=== PATIENT | female | born 1990 | race African-American/Black ===

== ENCOUNTER 2023-02-01 19:02 | Emergency (ER) | payer OTHER ==
[~2023-02-01] VITALS: Ht 149.9 cm; Wt 62.0 kg
[2023-02-01 19:29] VITALS: TEMP 97.5; O2SAT 99
[2023-02-01] MEDS ORDERED: MOTRIN (19:29)
[2023-02-01 19:30] VITALS: BP 137/74; PULSE 88; RESP 16
[2023-02-01] MEDS ORDERED: DIAZEPAM 2 MG TABLET PO ONE (19:30)
[2023-02-01] MEDS ORDERED: IBUPROFEN 600MG TABLET PO ONE (19:30)
[2023-02-01] MEDS ORDERED: ACET-2708 MT (20:42)
[2023-02-01] MEDS ORDERED: CYCL7.5T25 PO (20:43)
== END 2023-02-01 21:57 | disposition home or self-care (01) ==
LOC: ER 19:02
DX: M25.511 Pain in right shoulder (principal); Z90.49 Acquired absence of other specified parts of digestive tract; V49.59XA Passenger injured in collision with other motor vehicles in traffic accident, initial encounter; Y93.89 Activity, other specified; Y92.89 Other specified places as the place of occurrence of the external cause; Y99.8 Other external cause status
CPT/HCPCS: 73000; 73030; 99284